=== PATIENT | female | born 1990 | race Caucasian/White ===

== ENCOUNTER → 2019-10-26 | Outpatient (CLI) | payer BC ==
[2015-10-17 11:31] VITALS: BP 115/75
[~2019-10-26] MED LIST: ALBU2.5V8 INH; HYDR-2678 PO; LEXAPRO20 MG PO; NAPR220C4 PO; NORE-83 PO
--- NOTE | 2019-10-26 12:09 | RAD ---
EXAM: Right breast ultrasound. HISTORY: Palpable mass right subareolar region. COMPARISON: 10/10/2015. FINDINGS: Sonography of the subareolar site of concern was performed. Immediately deep to the right nipple, a solid hypoechoic circumscribed mass measures 13 x 13 x 12 mm. It is slightly taller than wide. No associated dilated ducts are seen. Internal perfusion is detectable on Doppler. No additional masses or dilated ducts are appreciated in the periareolar region. Images of the right axilla revealed scarring associated with prior resection of axillary breast tissue. There are no pathologic-appearing right axillary lymph nodes. IMPRESSION: 1. BI-RADS Category 4: Suspicious abnormality--biopsy is suggested. 2. These findings were discussed with the patient. Options including ultrasound guided biopsy and resection were discussed. The patient prefers surgical consultation. Electronically signed by: Rafael Lara MD (10/26/2019 12:06 PM) [id number]
== END | disposition home or self-care (01) ==
LOC: US 10:31
PROVIDERS: ATTEND Nurse Practitioner Gerontology
DX: N63.10 Unspecified lump in the right breast, unspecified quadrant (principal)
CPT/HCPCS: 76641

== ENCOUNTER → 2020-05-23 | Outpatient (CLI) | payer BC ==
[2015-10-17 11:31] VITALS: BP 115/75
--- NOTE | 2020-05-23 15:06 | RAD ---
Examination: Right breast Limited ultrasound. INDICATION: 29-year-old woman status post subareolar right breast mass excision, referred for imaging follow up. By report, that revealed a papilloma. COMPARISON: Right breast ultrasound of 10/26/2019. TECHNIQUE: Grayscale ultrasound imaging with color Doppler imaging of the subareolar right breast was performed. The right axilla was also surveyed. FINDINGS: The 1.3 cm subareolar mass at the right mass is now absent. There is ovoid low density in the subareolar breast and could reflect postsurgical scar or trace fluid collection. This measures 6 mm wide by 3 mm tall. Sonographic survey of the right axilla reveals no adenopathy. IMPRESSION: Benign postsurgical changes following excision of subareolar right breast mass, by report a papilloma. No evidence of malignancy. BI-RADS Category 2 Benign findings Recommend age-appropriate and risk appropriate annual mammographic screening, starting at age 40 in average risk women.
== END ==
LOC: US 14:23
PROVIDERS: ATTEND Physician Assistant
DX: D24.1 Benign neoplasm of right breast (principal); N60.91 Unspecified benign mammary dysplasia of right breast
CPT/HCPCS: 76641

== ENCOUNTER 2021-01-04 21:23 | Emergency (ER) | payer BC ==
[~2021-01-04] VITALS: Ht 165.1 cm; Wt 95.4 kg
[2021-01-04 21:35] VITALS: BP 146/79
[2021-01-04 21:53] LABS: BILIRUBIN,URINE NEGATIVE (NEG); CLARITY,URINE CLOUDY; COLOR,URINE AMBER; NITRITE,URINE POSITIVE (NEG); PROTEIN,URINE 100 mg/dL (NEG-TRACE); UROBILINOGEN,URINE 0.2 mg/dL (0.2 mg/dL)
[2021-01-04 22:04] LABS: BACTERIA,URINE MANY /HPF (0-FEW); WBC,URINE TNTC /HPF (0-4)
[2021-01-04] MEDS ORDERED: NITR100C PO (22:36)
--- NOTE | 2021-01-04 22:36 | ED.ADGEN ---
Past Medical History Past Medical History: Asthma, Depression Past Surgical History: Tonsillectomy, Other Additional Past Surgical Histo: left axillary lymph node Smoking Status: Never Smoker Alcohol Use: None Drug Use: None General Adult EDM: Chief Complaint: PAIN ON URINATION HPI: HPI: Patient is a 30 year old female coming in for dysuria for the past 3 to 4 hours. Patient states that symptoms started this afternoon and she has had urinary urgency, dysuria, frequency, and small specks of blood in her urine. Denies any vaginal discharge. Has some low pelvic pain denies any back pain, fevers, vomiting or diarrhea. Has been vaccinated against Covid. Is her next menstrual cycle is to start in the next couple days. Review of Systems: Review of Systems: Constitutional: Denies fever or chills. [] Eyes: Denies change in visual acuity. [] HENT: Denies nasal congestion or sore throat. [] Respiratory: Denies cough or shortness of breath. [] Cardiovascular: Denies chest pain or edema. [] GI: Denies abdominal pain, nausea, vomiting, bloody stools or diarrhea. [] : Denies dysuria. [] Musculoskeletal: Denies back pain or joint pain. [] Integument: Denies rash. [] Neurologic: Denies headache, focal weakness or sensory changes. [] Endocrine: Denies polyuria or polydipsia. [] Lymphatic: Denies swollen glands. [] Psychiatric: Denies depression or anxiety. [] Current Medications: All other systems within normal limits except for as noted in the HPI Allergies: Allergies: Allergies Coded Allergies Type Severity Reaction Last Updated Verified Penicillins Allergy Intermediate 08/15/15 Yes cefdinir Allergy Intermediate 08/15/15 Yes erythromycin base Allergy Intermediate 08/15/15 Yes escitalopram Allergy Intermediate 08/15/15 Yes Physical Exam: PE: Constitutional: Well developed, well nourished, no acute distress, non-toxic appearance. [] HENT: Normocephalic, atraumatic, bilateral external ears normal, nose normal. [] Eyes: PERRLA, conjunctiva normal, no discharge. [] Neck: No rigidity, supple, no stridor. [] Cardiovascular: Regular rate and rhythm, brisk cap refill [] Lungs & Thorax: Non labored symmetric respirations, no tachypnea or respiratory distress [] Abdomen: Soft, nondistended suprapubic tenderness. Skin: Warm, dry, no erythema, no rash. [] Back: Unremarkable Extremities: No deformities, range of motion grossly intact, no lower extremity edema [] Neurologic: Alert and oriented X 3, no focal deficits noted. [] Psychologic: Affect normal, judgement normal, mood normal. [] Current Patient Data: Labs: Laboratory Tests Test 01/04/21 21:30 01/04/21 21:34 Urine Collection Type Void Urine Color [place] Urine Clarity Cloudy Urine pH 6.0 (<5.0-8.0) Urine Specific [place] <=1.005 (1.000-1.030) Urine Protein 100 mg/dL (NEG-TRACE) Urine Glucose (UA) Negative mg/dL (NEG) Urine Ketones (Stick) Negative mg/dL (NEG) Urine Blood Large (NEG) Urine Nitrite Positive (NEG) Urine Bilirubin Negative (NEG) Urine Urobilinogen Dipstick 0.2 mg/dL (0.2 mg/dL) Urine Leukocyte Esterase Large (NEG) Urine RBC 11-20 /HPF (0-2) Urine WBC Tntc /HPF (0-4) Urine Squamous Epithelial Cells Few /LPF Urine Bacteria Many /HPF (0-FEW) Urine Mucus Slight /LPF POC Urine HCG, Qualitative Hcg negative (Negative) Vital Signs: Vital Signs Date Time Temp Pulse Resp B/P (MAP) Pulse Ox O2 Delivery O2 Flow Rate FiO2 01/04/21 21:35 97.9 97 16 146/79 (101) 98 Room Air 97.9 EKG: EKG: [] Heart Score: C/O Chest Pain: No Risk Factors: Risk Factors: DM, Current or recent (<one month) smoker, HTN, HLP, family hist ory of CAD, obesity. Risk Scores: Score 0 - 3: 2.5% MACE over next 6 weeks - Discharge Home Score 4 - 6: 20.3% MACE over next 6 weeks - Admit for Clinical Observation Score 7 - 10: 72.7% MACE over next 6 weeks - Early Invasive Strategies Radiology/Procedures: Radiology/Procedures: [] Course & Med Decision Making: Course & Med Decision Making Pertinent Labs and Imaging studies reviewed. (See chart for details) [] Dragon Disclaimer: Dragon Disclaimer: This electronic medical record was generated, in whole or in part, using a voice recognition dictation system. Departure Departure Impression: Primary Impression: UTI (urinary tract infection) Disposition: HOME / SELF CARE / HOMELESS Condition: STABLE Referrals: LISSETTE DE ANDA MD (PCP) Patient Instructions: Urinary Tract Infection Scripts Nitrofurantoin Macrocrystal (NITROFURANTOIN) 100 Mg Capsule 1 CAP PO BID for antibiotic for 5 Days, #10 CAP Prov: JOSAFAT PADGETT MD 01/04/21 JOSAFAT PADGETT MD Jan 04, 2021 22:36
[2021-01-04] MEDS ORDERED: NITROFURANTOIN MONOHYD/M-CRYST 100 MG CAPSULE. PO ONE (22:45)
== END 2021-01-04 22:35 | disposition home or self-care (01) ==
LOC: ER 21:23
DX: N39.0 Urinary tract infection, site not specified (principal); J45.909 Unspecified asthma, uncomplicated; Z88.0 Allergy status to penicillin; Z88.1 Allergy status to other antibiotic agents
CPT/HCPCS: 81001; 81025; 87086; 99283

== ENCOUNTER → 2021-06-19 | Outpatient (CLI) | payer BC ==
[~2021-06-19] MED LIST changes: +NITR100C PO
--- NOTE | 2021-06-19 15:28 | RAD ---
DIAGNOSTIC RIGHT BREAST ULTRASOUND INDICATION: Lump behind nipple. Prior mass excision. COMPARISON: 05/23/2020, 10/26/2019 FINDINGS: Evaluation of the area of concern in the retroareolar right breast demonstrates normal fibroglandular tissue. There is minimal duct ectasia. No cyst or mass. IMPRESSION: 1. No imaging evidence of malignancy. ASSESSMENT: BI-RADS 2: Benign. RECOMMENDATION: Routine annual screening mammogram beginning at age 40. The facility will notify the patient of the results via mail. Patient information will be entered int o the mammography reminder system with a target recall date for the next mammogram. A reminder letter will be generated by the facility. Electronically signed by: Anival Tejeda MD (06/19/2021 3:26 PM) [id number]
== END ==
LOC: US 14:55
PROVIDERS: ATTEND Nurse Practitioner
DX: D48.61 Neoplasm of uncertain behavior of right breast (principal)
CPT/HCPCS: 76641